=== PATIENT | female | born 1975 | race Caucasian/White ===

== ENCOUNTER 2017-06-13 08:27 | Emergency (ER) | payer OTHER ==
[~2017-06-13] VITALS: Ht 157.5 cm; Wt 70.3 kg
[~2017-06-13 08:27] MED LIST: METO25TA5 PO
[2017-06-13] MEDS ORDERED: SODIUM CHLORIDE 0.9% 1,000 ML IV ONE ×2 (08:48→09:00)
[2017-06-13] MEDS ORDERED: PROCHLORPERAZINE EDISYLATE 5 MG/ML 2ML VIAL IV ONE (09:00)
[2017-06-13 09:08] LABS: Basophils # (auto) 0.1 uL; Basophils % (auto) 0.6 % (0.0-2.0); CONDITION Y; Eosinophils # (auto) 0 uL; Eosinophils % (auto) 0.1 % (0.0-7.0); Hematocrit 43.6 % (36.0-46.0); Lymphocytes # (auto) 1.4 uL; Mean Corpuscular Hemoglobin 30.8 pg (28.0-32.0); Mean Corpuscular Hgb Conc. 34.4 g/dL (32.0-36.0); Mean Corpuscular Volume 89.5 fL (80.0-100.0); Mean Platelet Volume 7.1 fL (7.4-10.4); Monocytes # (auto) 0.6 uL; Monocytes % (auto) 6.2 % (0.0-12.0); Neutrophils # (auto) 8.3 uL; Neutrophils % (auto) 80.1 % (37.0-80.0); Platelet Count (auto) 433 10^3/uL (140-450); Red Cell Distribution Width 13.6 % (11.6-16.0); White Blood Cell 10.4 10^3/uL (4.4-10.8)
[2017-06-13 09:30] LABS: Albumin 4.1 g/dL (3.4-5.0); BUN/Creatinine Ratio 31.2; Bilirubin, Total 1.2 mg/dL (0.2-1.0); Calcium 9.7 mg/dL (8.5-10.1); Magnesium 2.6 mg/dL (1.6-2.6); Potassium 3.4 mmol/L (3.5-5.1); Total Protein 8.3 g/dL (6.4-8.2)
[2017-06-13 10:28] VITALS: BP 129/76
== END 2017-06-13 11:50 | disposition home or self-care (01) ==
LOC: ER 08:27
DX: B34.9 Viral infection, unspecified (principal); R11.14 Bilious vomiting; I10 Essential (primary) hypertension
CPT/HCPCS: 36415; 80053; 83690; 83735; 85025; 94761; 96361; 96374; 99284; J0780; J7030

== ENCOUNTER 2019-09-25 11:22 | Emergency (ER) | payer MEDICAID, OTHER ==
[~2019-09-25] VITALS: Ht 157.5 cm; Wt 77.1 kg
[2019-09-25 11:38] VITALS: BP 123/83
[2019-09-25 12:52] LABS: Urine Bacteria MANY /hpf (None Seen); Urine Blood 2+ /uL (Negative); Urine Specific Gravity 1.019 (1.001-1.035); Urine WBC 694 /hpf (0 - 5); Urine WBC Clumps PRESENT /hpf (None Seen)
[2019-09-26] MEDS ORDERED: ACET-1156 PO (21:27)
[2019-09-28] MEDS ORDERED: PROM25TA21 PO (18:05)
[2019-09-28] MEDS ORDERED: LEVO500T21 PO (18:05)
== END 2019-09-25 17:00 | disposition left against medical advice (07) ==
LOC: ER 11:22
DX: R50.9 Fever, unspecified (principal); Z53.21 Procedure and treatment not carried out due to patient leaving prior to being seen by health care provider
CPT/HCPCS: 81001

== ENCOUNTER 2020-01-17 14:13 | Emergency (ER) | payer MEDICAID ==
[~2020-01-17] VITALS: Ht 170.2 cm; Wt 74.8 kg
[~2020-01-17 14:13] MED LIST changes: +ACET-1156 PO; +LEVO500T21 PO; +PROM25TA21 PO
[2020-01-17] MEDS ORDERED: SODIUM CHLORIDE 0.9% 1,000 ML IV ONE (14:21)
[2020-01-17] MEDS ORDERED: ONDANSETRON HCL 4 MG/2 ML VIAL IV ONE (14:30)
[2020-01-17] MEDS ORDERED: LORazepam 2MG/ML-1ML VIAL IV ONE (14:30)
[2020-01-17] MEDS ORDERED: PANTOPRAZOLE 40 MG/10 ML VIAL INJ IV ONE (14:30)
[2020-01-17 14:56] LABS: Basophils # (auto) 0.1 10 ^3/uL (0-0.2); Basophils % (auto) 0.9 % (0.0-2.0); Eosinophils # (auto) 0.1 10 ^3/uL (0-0.8); Hematocrit 45.1 % (36.0-46.0); Hemoglobin 14.8 g/dL (12.2-16.2); Lymphocytes # (auto) 3.2 10 ^3/uL (0.4-5.4); Lymphocytes % (auto) 27.4 % (10.0-50.0); Mean Corpuscular Hemoglobin 28.5 pg (28.0-32.0); Mean Corpuscular Hgb Conc. 32.8 g/dL (32.0-36.0); Mean Corpuscular Volume 86.9 fL (80.0-100.0); Monocytes # (auto) 0.7 10 ^3/uL (0-1.3); Monocytes % (auto) 6.4 % (0.0-12.0); Neutrophils # (auto) 7.4 10 ^3/uL (1.6-8.6); Neutrophils % (auto) 64.3 % (37.0-80.0); Nucleated Red Blood Cells % 0.2 %; Platelet Count (auto) 391 10^3/uL (140-450); Red Blood Cells 5.18 10^6/uL (4.0-5.20); Red Cell Distribution Width 14.2 % (11.8-14.3); White Blood Cell 11.6 10^3/uL (4.4-10.8)
[2020-01-17 15:14] LABS: Albumin 3.5 g/dL (3.4-5.0); Calcium 9.1 mg/dL (8.5-10.1); Potassium 3.2 mmol/L (3.5-5.1)
[2020-01-17 15:17] LABS: BUN/Creatinine Ratio 16.5; Total Protein 8.1 g/dL (6.4-8.2)
[2020-01-17 18:16] VITALS: BP 131/76
[2020-01-17] MEDS ORDERED: POTASSIUM EFFERVESENT TAB 25 MEQ PO ONE (18:45)
== END 2020-01-17 18:44 | disposition home or self-care (01) ==
LOC: EDBD 14:13 → ER 14:13 → EDUNIT# 14:13 → ER 18:44
DX: F41.9 Anxiety disorder, unspecified (principal); R06.02 Shortness of breath; F32.9 Major depressive disorder, single episode, unspecified; I10 Essential (primary) hypertension; F17.210 Nicotine dependence, cigarettes, uncomplicated
CPT/HCPCS: 36415; 80053; 85025; 96374; 96375; 99284; C9113; J2060; J2405

== ENCOUNTER 2020-08-10 13:06 | Emergency (ER) | payer MEDICAID ==
[~2020-08-10] VITALS: Ht 157.5 cm; Wt 81.6 kg
[2020-08-10 13:18] VITALS: BP 158/96
== END 2020-08-10 15:56 | disposition left against medical advice (07) ==
LOC: ER 13:06
DX: R10.13 Epigastric pain (principal); R11.2 Nausea with vomiting, unspecified; I10 Essential (primary) hypertension; F17.210 Nicotine dependence, cigarettes, uncomplicated; F12.10 Cannabis abuse, uncomplicated; F15.10 Other stimulant abuse, uncomplicated; Z87.442 Personal history of urinary calculi; Z90.49 Acquired absence of other specified parts of digestive tract

== ENCOUNTER 2021-10-05 17:05 | Emergency (ER) | payer MEDICAID ==
[~2021-10-05] VITALS: Ht 157.5 cm; Wt 72.6 kg
[~2021-10-05 17:05] MED LIST changes: -LEVO500T21 PO; +LEVO500T31 PO
[2021-10-05 17:27] VITALS: BP 129/82
[2021-10-05] MEDS ORDERED: LIDOCAINE VISCOUS 2% 15ML UD PO ONE (17:45)
[2021-10-05] MEDS ORDERED: cefTRIAXone SOD 1,000 MG VL IM ONE (17:45)
[2021-10-05] MEDS ORDERED: LIDO2SOL23 PO (17:54)
[2021-10-05] MEDS ORDERED: AZIT250T8 PO (17:54)
== END 2021-10-05 18:03 | disposition home or self-care (01) ==
LOC: ER 17:05
DX: J03.90 Acute tonsillitis, unspecified (principal); F17.210 Nicotine dependence, cigarettes, uncomplicated; F12.10 Cannabis abuse, uncomplicated; F15.10 Other stimulant abuse, uncomplicated; K21.9 Gastro-esophageal reflux disease without esophagitis; I10 Essential (primary) hypertension; Z90.49 Acquired absence of other specified parts of digestive tract; Z87.442 Personal history of urinary calculi
CPT/HCPCS: 96372; 99283; J0696

== ENCOUNTER 2021-10-07 20:59 | Emergency (ER) | payer MEDICAID ==
[~2021-10-07] VITALS: Ht 165.1 cm; Wt 68.0 kg
[~2021-10-07 20:59] MED LIST changes: +AZIT250T8 PO; +LIDO2SOL23 PO
[2021-10-07 22:50] LABS: Basophils # (auto) 0.1 10 ^3/uL (0-0.2); Basophils % (auto) 0.4 % (0.0-2.0); Eosinophils # (auto) 0 10 ^3/uL (0-0.8); Eosinophils % (auto) 0.3 % (0.0-7.0); Hematocrit 46.1 % (36.0-46.0); Hemoglobin 16.3 g/dL (12.2-16.2); Lymphocytes # (auto) 2.4 10 ^3/uL (0.4-5.4); Lymphocytes % (auto) 17.7 % (10.0-50.0); Mean Corpuscular Hemoglobin 30.2 pg (28.0-32.0); Mean Corpuscular Hgb Conc. 35.4 g/dL (32.0-36.0); Mean Corpuscular Volume 85.4 fL (80.0-100.0); Monocytes # (auto) 1.3 10 ^3/uL (0-1.3); Monocytes % (auto) 9.7 % (0.0-12.0); Neutrophils # (auto) 9.9 10 ^3/uL (1.6-8.6); Neutrophils % (auto) 71.9 % (37.0-80.0); Nucleated Red Blood Cells % 0.1 %; Red Cell Distribution Width 14.6 % (11.8-14.3); White Blood Cell 13.7 10^3/uL (4.4-10.8)
[2021-10-07 23:08] LABS: Albumin 4.2 g/dL (3.4-5.0); Calcium 9.3 mg/dL (8.5-10.1)
[2021-10-07 23:13] LABS: BUN/Creatinine Ratio 24.3; Bilirubin, Total 1.4 mg/dL (0.2-1.0); Total Protein 8.4 g/dL (6.4-8.2)
[2021-10-07 23:34] LABS: Potassium 2.2 mmol/L (3.5-5.1)
[2021-10-08] MEDS ORDERED: POTASSIUM CHL 20MEQ/100ML 100 ML IV STA (00:21)
[2021-10-08] MEDS ORDERED: LACTATED RINGER'S 1,000 ML IV ONE (00:30)
[2021-10-08] MEDS ORDERED: POTASSIUM EFFERVESENT TAB 25 MEQ PO ONE (00:30)
[2021-10-08] MEDS ORDERED: SODIUM CHLORIDE 0.9% 1,000 ML IV ONE (02:30)
[2021-10-08] MEDS ORDERED: ONDANSETRON HCL 4 MG/2 ML VIAL IV ONE (02:30)
[2021-10-08] MEDS ORDERED: POTASSIUM CHL 20MEQ/50ML 100 ML IV ONE (02:56)
[2021-10-08] MEDS ORDERED: METOCLOPRAMIDE HCL 5MG/ml INJ 2ml VIAL IV ONE (06:15)
[2021-10-08 07:13] LABS: Albumin 3.6 g/dL (3.4-5.0); Calcium 8.9 mg/dL (8.5-10.1)
[2021-10-08 07:17] LABS: BUN/Creatinine Ratio 29.1; Bilirubin, Total 1.6 mg/dL (0.2-1.0); Total Protein 6.9 g/dL (6.4-8.2)
[2021-10-08 07:38] LABS: Potassium 2.9 mmol/L (3.5-5.1)
[2021-10-08 09:09] VITALS: BP 124/81
== END 2021-10-08 12:57 | disposition left against medical advice (07) ==
LOC: EDBD 20:59 → ER 21:04
DX: R55 Syncope and collapse (principal); E86.0 Dehydration; E87.6 Hypokalemia; F17.210 Nicotine dependence, cigarettes, uncomplicated; F12.10 Cannabis abuse, uncomplicated; F15.10 Other stimulant abuse, uncomplicated; K21.9 Gastro-esophageal reflux disease without esophagitis; I10 Essential (primary) hypertension; Z90.49 Acquired absence of other specified parts of digestive tract; Z87.442 Personal history of urinary calculi
CPT/HCPCS: 36415; 70450; 71045; 72125; 80053; 83735; 83880; 84132; 84484; 85025; 93005; 96361; 96365; 96366; 96375; 99285; J2405; J2765; J3480; J7030; J7050

== ENCOUNTER 2022-03-23 17:20 | Inpatient (IN) | payer MEDICAID ==
[~2022-03-23] VITALS: Ht 157.5 cm; Wt 68.0 kg
[2022-03-23] MEDS: SODIUM CHLORIDE 0.9% 1,000 ML IV SCH (01:23)
[2022-03-23] MEDS: POTASSIUM CHL 20MEQ/100ML 100 ML IV SCH ×2 (01:24→21:34)
[2022-03-23] MEDS ORDERED: ONDANSETRON ODT 4 MG TAB PO ONE (17:45)
[2022-03-23 18:16] LABS: Basophils # (auto) 0.1 10 ^3/uL (0-0.2); Basophils % (auto) 0.6 % (0.0-2.0); Eosinophils # (auto) 0.1 10 ^3/uL (0-0.8); Eosinophils % (auto) 0.5 % (0.0-7.0); Hematocrit 44.3 % (36.0-46.0); Hemoglobin 15.6 g/dL (12.2-16.2); Lymphocytes % (auto) 16.6 % (10.0-50.0); Mean Corpuscular Hemoglobin 30.1 pg (28.0-32.0); Mean Corpuscular Hgb Conc. 35.2 g/dL (32.0-36.0); Mean Corpuscular Volume 85.4 fL (80.0-100.0); Monocytes % (auto) 8.4 % (0.0-12.0); Neutrophils % (auto) 73.9 % (37.0-80.0); Red Blood Cells 5.19 10^6/uL (4.0-5.20); Red Cell Distribution Width 13.5 % (11.8-14.3); White Blood Cell 12.1 10^3/uL (4.4-10.8)
[2022-03-23 18:31] LABS: Partial Thromboplastin Time 23.9 sec (23.6-33.0)
[2022-03-23 18:32] LABS: Albumin 4.1 g/dL (3.4-5.0); BUN/Creatinine Ratio 21.6; Calcium 9.8 mg/dL (8.5-10.1)
[2022-03-23 18:43] LABS: Total Protein 7.9 g/dL (6.4-8.2)
[2022-03-23 18:52] LABS: Potassium 2.3 mmol/L (3.5-5.1)
[2022-03-23] MEDS ORDERED: SODIUM CHLORIDE 0.9% 1,000 ML IV ONE (19:15)
[2022-03-23] MEDS ORDERED: POTASSIUM CHL 20 Meq TABLET PO ONE (19:15)
[2022-03-23] MEDS ORDERED: PANTOPRAZOLE 40 MG/10 ML VIAL INJ IV ONE (20:15)
[2022-03-23] MEDS ORDERED: METOCLOPRAMIDE HCL 5MG/ml INJ 2ml VIAL IV ONE (21:00)
[2022-03-23] MEDS ORDERED: DOCUSATE SOD 100 MG CAP PO PRN (22:15)
[2022-03-23] MEDS ORDERED: ACETAMINOPHEN 325 MG TAB PO PRN (22:15)
[2022-03-23] MEDS ORDERED: HYDROcodone-ACET 5/325MG TAB PO PRN (22:15)
[2022-03-23] MEDS ORDERED: ONDANSETRON HCL 4 MG/2 ML VIAL IV PRN (22:15)
[2022-03-23] MEDS ORDERED: METOPROLOL TARTRATE 25 MG TAB PO ONE (22:15)
[2022-03-23] MEDS ORDERED: NITROGLYCERIN 0.4 MG SL TAB SL PRN (23:15)
[2022-03-23] MEDS ORDERED: MORPHINE SULFATE INJ 2 MG/ml SYRG IV PRN (23:15)
[2022-03-24 01:17] LABS: Urine Bacteria MOD /hpf (None Seen); Urine Blood 3+ /uL (Negative); Urine Specific Gravity 1.011 (1.001-1.035); Urine WBC 136 /hpf (0 - 5); Urine WBC Clumps PRESENT /hpf (None Seen)
[2022-03-24] MEDS ORDERED: cefTRIAXone 1GM/50ML D5W 50 ML IV ONE (01:45)
[2022-03-24] MEDS: SODIUM CHLORIDE 0.9% 1,000 ML IV SCH ×2 (03:00→10:15)
[2022-03-24 03:47] LABS: Basophils # (auto) 0 10 ^3/uL (0-0.2); Basophils % (auto) 0.4 % (0.0-2.0); Eosinophils # (auto) 0.1 10 ^3/uL (0-0.8); Hematocrit 39.5 % (36.0-46.0); Hemoglobin 13.6 g/dL (12.2-16.2); Lymphocytes # (auto) 1.7 10 ^3/uL (0.4-5.4); Lymphocytes % (auto) 17.1 % (10.0-50.0); Mean Corpuscular Hemoglobin 29.9 pg (28.0-32.0); Mean Corpuscular Hgb Conc. 34.4 g/dL (32.0-36.0); Mean Corpuscular Volume 87.1 fL (80.0-100.0); Monocytes # (auto) 0.8 10 ^3/uL (0-1.3); Neutrophils # (auto) 7.3 10 ^3/uL (1.6-8.6); Neutrophils % (auto) 73.5 % (37.0-80.0); Red Blood Cells 4.54 10^6/uL (4.0-5.20); Red Cell Distribution Width 13.5 % (11.8-14.3); White Blood Cell 9.9 10^3/uL (4.4-10.8)
[2022-03-24 04:12] LABS: Albumin 3.1 g/dL (3.4-5.0); Calcium 8.1 mg/dL (8.5-10.1)
[2022-03-24 04:15] LABS: Bilirubin, Total 1.3 mg/dL (0.2-1.0); Total Protein 6.2 g/dL (6.4-8.2)
[2022-03-24 04:43] LABS: Potassium 2.9 mmol/L (3.5-5.1)
[2022-03-24 08:43] VITALS: BP 129/63
[2022-03-24] MEDS ORDERED: cefTRIAXone 1GM/50ML D5W 50 ML IV SCH (09:00)
[2022-03-24] MEDS ORDERED: SOD CHL 0.9%/ KCL 40MEQ 1,000 ML IV SCH (09:15)
[2022-03-24] MEDS ORDERED: METOPROLOL TARTRATE 25 MG TAB PO SCH (10:00)
[2022-03-24] MEDS ORDERED: FAMOTIDINE (10MG/ML) 2ML VL IV SCH (10:00)
[2022-03-24] MEDS: MAGNESIUM SULFATE 1GM/100ML 100 ML IV SCH ×2 (10:16→11:27)
== END 2022-03-24 15:03 | disposition left against medical advice (07) | DRG 422 ==
LOC: EDBD 17:20 → ER 17:20 → TELE 23:10
PROVIDERS: ADMIT Nurse Practitioner Family; ATTEND Internal Medicine
DX: E87.6 Hypokalemia (principal); E86.0 Dehydration; E87.3 Alkalosis; K52.9 Noninfective gastroenteritis and colitis, unspecified; E87.1 Hypo-osmolality and hyponatremia; E87.8 Other disorders of electrolyte and fluid balance, not elsewhere classified; Z20.822 Contact with and (suspected) exposure to COVID-19; Z53.29 Procedure and treatment not carried out because of patient's decision for other reasons; F17.210 Nicotine dependence, cigarettes, uncomplicated; I10 Essential (primary) hypertension; K44.9 Diaphragmatic hernia without obstruction or gangrene; N39.0 Urinary tract infection, site not specified; Z80.3 Family history of malignant neoplasm of breast; Z82.49 Family history of ischemic heart disease and other diseases of the circulatory system; Z83.2 Family history of diseases of the blood and blood-forming organs and certain disorders involving the immune mechanism; Z83.3 Family history of diabetes mellitus; Z87.442 Personal history of urinary calculi; Z88.8 Allergy status to other drugs, medicaments and biological substances; Z90.49 Acquired absence of other specified parts of digestive tract
CPT/HCPCS: 36415; 71045; 74176; 80053; 81001; 83036; 83690; 83735; 84484; 84702; 85025; 85610; 85730; 87086; 93005; 96361; 96365; 96375; C9113; G0378; J0696; J3480; J3490; Q0162

== ENCOUNTER 2023-01-08 14:23 | Emergency (ER) | payer MEDICAID ==
[~2023-01-08] VITALS: Ht 157.5 cm; Wt 64.1 kg
[2023-01-08 14:32] VITALS: BP 126/91
[2023-01-08 15:02] LABS: Basophils # (auto) 0.1 10 ^3/uL (0-0.2); Basophils % (auto) 1.3 % (0.0-2.0); Eosinophils # (auto) 0.1 10 ^3/uL (0-0.8); Eosinophils % (auto) 0.7 % (0.0-7.0); Hematocrit 50.4 % (36.0-46.0); Hemoglobin 17.6 g/dL (12.2-16.2); Mean Corpuscular Hemoglobin 29.4 pg (28.0-32.0); Mean Corpuscular Hgb Conc. 34.9 g/dL (32.0-36.0); Mean Corpuscular Volume 84.3 fL (80.0-100.0); Monocytes # (auto) 0.6 10 ^3/uL (0-1.3); Monocytes % (auto) 7.7 % (0.0-12.0); Neutrophils # (auto) 5.6 10 ^3/uL (1.6-8.6); Neutrophils % (auto) 66.3 % (37.0-80.0); Nucleated Red Blood Cells % 0.1 %; Red Blood Cells 5.97 10^6/uL (4.0-5.20); Red Cell Distribution Width 14.3 % (11.8-14.3); White Blood Cell 8.4 10^3/uL (4.4-10.8)
[2023-01-08 15:10] LABS: Urine Bacteria FEW /hpf (None Seen); Urine Blood 1+ /uL (Negative); Urine Mucus FEW (None Seen); Urine Specific Gravity 1.028 (1.001-1.035); Urine WBC 21 /hpf (0 - 5)
[2023-01-08 15:45] LABS: Albumin 4.3 g/dL (3.4-5.0); BUN/Creatinine Ratio 21.7 (10.0-20.0); Potassium 3.1 mmol/L (3.5-5.1)
[2023-01-08 15:48] LABS: Total Protein 8.8 g/dL (6.4-8.2)
[2023-01-08] MEDS ORDERED: GASTROGRAFIN 120 ML SOL ONE (16:00)
[2023-01-08] MEDS ORDERED: PROCHLORPERAZINE EDISYLATE 5 MG/ML 2ML VIAL ONE (17:35)
[2023-01-08] MEDS ORDERED: PROCHLORPERAZINE EDISYLATE 5 MG/ML 2ML VIAL IV ONE (17:45)
[2023-01-08] MEDS ORDERED: KETOROLAC TROMETH 30 MG/ML 1ML VIAL IV ONE (17:45)
[2023-01-08] MEDS ORDERED: ONDANSETRON HCL 4 MG/2 ML VIAL IV ONE (17:45)
[2023-01-08] MEDS ORDERED: SODIUM CHLORIDE 0.9% 1,000 ML IV ONE ×2 (17:45)
== END 2023-01-08 18:28 | disposition left against medical advice (07) ==
LOC: ER 14:23
DX: K29.70 Gastritis, unspecified, without bleeding (principal); K21.9 Gastro-esophageal reflux disease without esophagitis; I10 Essential (primary) hypertension; F12.10 Cannabis abuse, uncomplicated; F17.210 Nicotine dependence, cigarettes, uncomplicated; F15.10 Other stimulant abuse, uncomplicated; Z87.442 Personal history of urinary calculi; Z90.49 Acquired absence of other specified parts of digestive tract; Z88.1 Allergy status to other antibiotic agents; Z88.2 Allergy status to sulfonamides
CPT/HCPCS: 36415; 71250; 74176; 80053; 81001; 83690; 85025; 96361; 96374; 96375; 99285; J0780; J1885; J2405; J7030

== ENCOUNTER 2023-05-24 18:06 | Emergency (ER) | payer MEDICAID ==
[~2023-05-24] VITALS: Ht 157.5 cm; Wt 63.3 kg
[~2023-05-24 18:06] MED LIST changes: -ACET-1156 PO; +ACET-1881 PO; +AZIT-81 PO; -AZIT250T8 PO; -LIDO2SOL23 PO; +LIDO2SOL26 PO
[2023-05-24 18:19] VITALS: BP 119/96; PULSE 140; RESP 18; O2SAT 96
[2023-05-24] MEDS ORDERED: SODIUM CHLORIDE 0.9% 1,000 ML IV ONE (19:00)
[2023-05-24] MEDS ORDERED: SODIUM CHLORIDE 0.9% 1,000 ML IVB ONE (19:15)
[2023-05-24] MEDS ORDERED: LORazepam 2MG/ML-1ML VIAL IV ONE (19:15)
[2023-05-24] MEDS ORDERED: ONDANSETRON HCL 4 MG/2 ML VIAL IV ONE (19:15)
[2023-05-24] MEDS ORDERED: PANTOPRAZOLE 40 MG/10 ML VIAL INJ IV ONE (19:15)
[2023-05-24] MEDS ORDERED: METOCLOPRAMIDE HCL 5MG/ml INJ 2ml VIAL IV ONE (19:15)
[2023-05-24 19:19] LABS: Basophils # (auto) 0.1 10 ^3/uL (0-0.2); Basophils % (auto) 1.1 % (0.0-2.0); Eosinophils # (auto) 0.1 10 ^3/uL (0-0.8); Eosinophils % (auto) 0.5 % (0.0-7.0); Hemoglobin 15.9 g/dL (12.2-16.2); Lymphocytes # (auto) 2.5 10 ^3/uL (0.4-5.4); Lymphocytes % (auto) 23.2 % (10.0-50.0); Mean Corpuscular Hemoglobin 30.1 pg (28.0-32.0); Mean Corpuscular Hgb Conc. 33.8 g/dL (32.0-36.0); Mean Corpuscular Volume 88.9 fL (80.0-100.0); Monocytes # (auto) 0.8 10 ^3/uL (0-1.3); Monocytes % (auto) 7.4 % (0.0-12.0); Neutrophils # (auto) 7.2 10 ^3/uL (1.6-8.6); Neutrophils % (auto) 67.8 % (37.0-80.0); Nucleated Red Blood Cells % 0.1 %; Red Blood Cells 5.29 10^6/uL (4.0-5.20); Red Cell Distribution Width 14.4 % (11.8-14.3); White Blood Cell 10.6 10^3/uL (4.4-10.8)
== END 2023-05-24 19:57 | disposition left against medical advice (07) ==
LOC: ER 18:06
DX: F12.188 Cannabis abuse with other cannabis-induced disorder (principal); R10.13 Epigastric pain
CPT/HCPCS: 36415; 85025; 96360; 99283; J7030

== ENCOUNTER 2023-10-05 09:16 | Emergency (ER) | payer MEDICAID ==
[~2023-10-05] VITALS: Ht 157.5 cm; Wt 68.2 kg
[2023-10-05 09:31] VITALS: BP 166/107; PULSE 124; RESP 18; O2SAT 99
== END 2023-10-05 14:58 | disposition left against medical advice (07) ==
LOC: ER 09:16
DX: R11.2 Nausea with vomiting, unspecified (principal); R10.9 Unspecified abdominal pain; Z53.21 Procedure and treatment not carried out due to patient leaving prior to being seen by health care provider

== ENCOUNTER 2023-10-16 19:00 | Emergency (ER) | payer MEDICAID ==
[~2023-10-16] VITALS: Ht 157.5 cm; Wt 68.1 kg
[2023-10-16 20:15] VITALS: BP 121/76; PULSE 119; RESP 18; O2SAT 98
[2023-10-16 22:12] LABS: Urine Bacteria MOD /hpf (None Seen); Urine Blood 3+ /uL (Negative); Urine Clarity HAZY (Clear); Urine Color Yellow (Yellow); Urine Mucus FEW (None Seen); Urine Protein, UAD 1+ (Negative); Urine WBC 59 /hpf (0 - 5)
[2023-10-16 22:15] LABS: Urine Specific Gravity 1.023 (1.001-1.035)
[2023-10-16 22:19] LABS: Amphetamine Screen, Urine Pos (NEGATIVE); Barbiturate Scree,Urine Neg (NEGATIVE); Benzodiazephine Screen, Urine Neg (NEGATIVE); Cannabinoid Screen, Urine Pos (NEGATIVE); Cocaine Screen, Urine Neg (NEGATIVE); Opiate Scree,Urine Neg (NEGATIVE); Phencyclidine Screen, Urine Neg (NEGATIVE)
== END 2023-10-16 22:36 | disposition left against medical advice (07) ==
LOC: ER 19:00
DX: R11.2 Nausea with vomiting, unspecified (principal); Z53.21 Procedure and treatment not carried out due to patient leaving prior to being seen by health care provider
CPT/HCPCS: 80307; 81001

== ENCOUNTER 2024-08-28 13:25 | Emergency (ER) | payer MEDICAID ==
[~2024-08-28] VITALS: Ht 157.5 cm; Wt 63.7 kg
[~2024-08-28 13:25] MED LIST changes: +AZIT-185 PO; -AZIT-81 PO
[2024-08-28 14:05] LABS: Basophils # (auto) 0.1 10 ^3/uL (0-0.2); Eosinophils # (auto) 0.2 10 ^3/uL (0-0.8); Eosinophils % (auto) 1.4 % (0.0-7.0); Hemoglobin 16.1 g/dL (12.2-16.2); Mean Corpuscular Hemoglobin 31.3 pg (28.0-32.0); Red Blood Cells 5.15 10^6/uL (4.0-5.20); Red Cell Distribution Width 13.8 % (11.8-14.3); White Blood Cell 10.9 10^3/uL (4.4-10.8)
[2024-08-28 14:07] LABS: Basophils % (auto) 0.9 % (0.0-2.0); Hematocrit 45.8 % (36.0-46.0); Lymphocytes # (auto) 2.3 10 ^3/uL (0.4-5.4); Lymphocytes % (auto) 20.8 % (10.0-50.0); Mean Corpuscular Hgb Conc. 35.1 g/dL (32.0-36.0); Monocytes # (auto) 0.7 10 ^3/uL (0-1.3); Monocytes % (auto) 6.4 % (0.0-12.0); Neutrophils # (auto) 7.7 10 ^3/uL (1.6-8.6); Neutrophils % (auto) 70.5 % (37.0-80.0); Platelet Count (auto) 477 10^3/uL (140-450)
[2024-08-28 14:21] LABS: Alanine Aminotransferase 12 U/L (7-40); Albumin 4.6 g/dL (3.2-4.8); Alkaline Phosphatase 75 U/L (46-116); Anion Gap 6 (5-15); Aspartate Aminotransferase 8 U/L (13-40); BUN/Creatinine Ratio 13.3 (10.0-20.0); Bilirubin, Total 1.6 mg/dL (0.2-1.0); Blood Urea Nitrogen 8 mg/dL (9-23); Carbon Dioxide 32 mmol/L (20-31); Chloride 93 mmol/L (98-107); Glucose 121 mg/dL (74-106); Sodium 131 mmol/L (136-145); Total Protein 7.5 g/dL (5.7-8.2)
--- NOTE | 2024-08-28 14:32 | ED.PDOC ---
GI ASSESSMENT HPI Comments A 49 YEAR OLD FEMALE PRESENTS TO THE ED WITH COMPLAINT OF EPIGASTRIC PAIN AND NAUSEA DUE TO HIATAL HERNIA. PATIENT STATES SHE HAS A HISTORY OF A HELD HERNIA AND NOTES THAT SHE TAKES PROTONIX TO MANAGE HER EPIGASTRIC PAIN AND NAUSEA, BUT STATES THAT SHE RECENTLY RAN OUT OF THIS MEDICATION 5 DAYS AGO AND BEGAN TO EXPERIENCE EPIGASTRIC PAIN WITH NAUSEA ONCE AGAIN. PATIENT IS REQUESTING IV TREATMENT AND A MEDICATION REFILL FOR HER PROTONIX. PATIENT DENIES FEVER, CHILLS, SHORTNESS OF BREATH, CHEST PAIN, VOMITING, HEADACHE, OR OTHER COMPLAINTS. NO OTHER SYMPTOMS OR MODIFYING FACTORS AT THIS TIME. PATIENT IS ALERT, ORIENTED X 4, AND HAS STEADY GAIT. Chief Complaint: Abdominal Pain Time Seen by MD: 13:38 Primary Care Provider: Josesito Reviewed Notes: Nurses Notes, Medications, Allergies Allergies: Coded Allergies: Quetiapine (Verified Allergy, Unknown, 08/10/20) Home Meds Active Scripts Sulfamethoxazole W/Trimethopri (Bactrim Ds Tablet) 1 Tab Tb, 1 TAB PO BID for 7 Days, #14 TAB Prov:MAXIMINO HARRIS 08/28/24 Ondansetron Odt 4MG Tab (ZOFRAN PO) 4 Mg Tb, 4 MG PO BID, #14 TAB ODT TAB-DISSOLVE IN MOUTH, THEN SWALLOW Prov:MAXIMINO HARRIS 08/28/24 Pantoprazole Sodium Sesquihydr (Protonix) 40 Mg Tab, 40 MG PO DAILY, #30 TAB Prov:MAXIMINO HARRIS 08/28/24 Lidocaine HCl (Mouth-Throat) (Lidocaine HCl Viscous) 2 % Kiki, 2 % PO TID, #100 ML Prov:MAXIMINO HARRIS 10/05/21 Azithromycin (ZITHROMAX TABLET) 250 Mg Tb, 250 MG PO DAILY for 6 Days, #6 TAB 0 Refills Prov:MAXIMINO HARRIS 10/05/21 Levofloxacin (Levaquin) 500 Mg Tab, 500 MG PO DAILY, #11 TAB Prov:ALMA MARAVILLA MD 09/28/19 Promethazine HCl (Promethazine Hydrochlorid) 25 Mg Tab, 25 MG PO Q6HPRN PRN, #12 TAB Prov:ALMA MARAVILLA MD 09/28/19 Reported Medications Acetaminophen (Acetaminophen) 325 Mg Tab, 1000 MG PO Q8HP PRN for MILD PAIN (1-3 PAIN SCALE) for 30 Days, MG 0 Refills 09/26/19 Metoprolol Tartrate (Metoprolol Tartrate) 25 Mg Tab, 25 MG PO, TAB 06/10/16 Information Source: Patient Mode of Arrival: Ambulatory Timing: Days Duration: Since onset, Days Prehospital treatment: None Quality: Aching, Cramping Vomitus: None Stool: Normal Severity: Moderate Recent: None Recent Hx of: Other (HIATAL HERNIA) Pain Location: Epigastric Modifying Factors: Nothing Associated sign and symptoms: Nausea, Vomiting, Abdominal Pain, None Past Medical History PAST MEDICAL HISTORY: Anxiety, Depression, GERD, HTN, Kidney Stones, UTI'S Past Medical History (Other): HIATAL HERNIA Surgical History: Cholecystectomy, , 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 History Family History Family History: Reviewed,noncontributory to illness, No family hx of Cancer, No family hx of DM Social History Smoker: Cigarettes, Greater Than 1 Pack/Day Alcohol: Denies ETOH Use Drugs: Marijuana, Methamphetamine Lives In: Home Constitutional: denies: chills, diaphoresis, fatigue, fever, malaise, sweats, weakness, others EENTM: denies: blurred vision, double vision, ear bleeding, ear discharge, ear drainage, ear pain, ear ringing, eye pain, eye redness, hearing loss, mouth pain, mouth swelling, nasal discharge, nose bleeding, nose congestion, nose pain, photophobia, tearing, throat pain, throat swelling, voice changes, others Respiratory: denies: cough, hemoptysis, orthopnea, SOB at rest, shortness of breath, SOB with excertion, stridor, wheezing, others Cardiovascular: denies: chest pain, dizzy spells, diaphoresis, Dyspnea on exertion, edema, irregular heart beat, left arm pain, lightheadedness, palpitations, PND, syncope, others Gastrointestinal: reports: abdominal pain (EPIGASTRIC PAIN), nausea; denies: abdomen distended, blood streaked bowels, constipated, diarrhea, dysphagia, difficulty swallowing, hematemesis, melena, poor appetite, poor fluid intake, rectal bleeding, rectal pain, vomiting, others Genitourinary: reports: dysuria, frequency, urgency; denies: abnormal vagina bleeding, burning, dyspareunia, flank pain, hematuria, incontinence, pain, , vagina discharge, others Neurological: denies: dizziness, fainting, headache, left sided numbness, left sided weakness, numbness, paresthesia, pre-existing deficit, right sided numbness, right sided weakness, seizure, speech problems, tingling, tremors, weakness, others Musculoskeletal: denies: back pain, gout, joint pain, joint swelling, muscle pain, muscle stiffness, neck pain, others Integumetry: denies: bruises, change in color, change in hair/nails, dryness, laceration, lesions, lumps, rash, wounds, others Allergic/Immunocompromised: denies: Difficulty Healing, Frequent Infections, Hives, Itching, others Hematologic/Lymphatic: denies: anemia, blood clots, easy bleeding, easy bruising, swollen glands, others Endocrine: denies: excessive hunger, excessive sweating, excessive thirst, excessive urination, flushing, intolerance to cold, intolerance to heat, unexplained weight gain, unexplained weight loss, others Psychiatric: denies: anxiety, bipolar disorder, depression, hopeless, panic disorder, schizophrenia, sleepless, suicidal, others All Other Systems: Reviewed and Negative Physical Exam General Appearance: No Apparent Distress, Normal HEENT: Normal ENT Inspection, PERRL/EOMI, Pharynx Normal, TMs Normal Neck: Full Range of Motion, Non-Tender, Normal, Normal Inspection Respiratory: Chest Non-Tender, Lungs Clear, No Accessory Muscle Use, No Respiratory Distress, Normal Breath Sounds Cardiovascular: No Edema, No JVD, No Murmur, No Gallop, Normal Peripheral Pulses, Regular Rate/Rhythm Breast Exam: Deferred Gastrointestinal: Epigastric, No Organomegaly, No Pulsatile Mass, Normal Bowel Sounds, Soft, Tenderness (EPIGASTRIC, NO GUARDING AND REBOUND TENDERNESS. 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 Was a procedure done?: No GI differential Dx Differential Diagnosis: Gastritis/PUD, Gastroenteritis, Hernia, UTI, Dehydration X-Ray, Labs, Meds, VS Vital Signs Date Time Temp Pulse Resp B/P (MAP) Pulse Ox O2 Delivery O2 Flow Rate FiO2 08/28/24 14:56 98.2 116 16 130/89 (103) 98.2 08/28/24 14:56 116 16 96 Room Air 08/28/24 14:00 98.2 116 16 130/89 (103) 96 Lab Test 08/28/24 14:24 08/28/24 13:55 Range/Units Urine Color Light-orange Yellow Urine Clarity Turbid H Clear Urine pH 6.0 5.0-9.0 Urine Specific [place] 1.016 1.001-1.035 Urine Protein Trace H Negative Urine Ketones Negative Negative Urine Blood 3+ H Negative /uL Urine Nitrite Negative Negative Urine Bilirubin Negative Negative Urine Urobilinogen 2 H Negative mg/dL Urine Leukocyte Esterase 3+ Negative /uL Urine RBC 418 0 - 4 /hpf Urine WBC 84 0 - 5 /hpf Urine Squamous Epithelial Cells Few <5 /hpf Urine Bacteria Mod H None Seen /hpf Urine Mucus Few None Seen Urine Glucose Normal Normal mg/dL Urine Test Negative Negative White Blood Count 10.9 H 4.4-10.8 10^3/uL Red Blood Count 5.15 4.0-5.20 10^6/uL Hemoglobin 16.1 12.2-16.2 g/dL Hematocrit 45.8 36.0-46.0 % Mean Corpuscular Volume 89.0 80.0-100.0 fL Mean Corpuscular Hemoglobin 31.3 28.0-32.0 pg Mean Corpuscular Hemoglobin Concent 35.1 32.0-36.0 g/dL Red Cell Distribution Width 13.8 11.8-14.3 % Platelet Count 477 H 140-450 10^3/uL Mean Platelet Volume 6.6 L 6.9-10.8 fL Neutrophils (%) (Auto) 70.5 37.0-80.0 % Lymphocytes (%) (Auto) 20.8 10.0-50.0 % Monocytes (%) (Auto) 6.4 0.0-12.0 % Eosinophils (%) (Auto) 1.4 0.0-7.0 % Basophils (%) (Auto) 0.9 0.0-2.0 % Neutrophils # (Auto) 7.7 1.6-8.6 10 ^3/uL Lymphocytes # (Auto) 2.3 0.4-5.4 10 ^3/uL Monocytes # (Auto) 0.7 0-1.3 10 ^3/uL Eosinophils # (Auto) 0.2 0-0.8 10 ^3/uL Basophils # (Auto) 0.1 0-0.2 10 ^3/uL Nucleated Red Blood Cells 0.0 % Sodium Level 131 L 136-145 mmol/L Potassium Level 3.0 L 3.5-5.1 mmol/L Chloride Level 93 L 98-107 mmol/L Carbon Dioxide Level 32 H 20-31 mmol/L Anion Gap 6 5-15 Blood Urea Nitrogen 8 L 9-23 mg/dL Creatinine 0.60 0.550-1.02 mg/dL Glomerular Filtration Rate Calc 110 >90 mL/min BUN/Creatinine Ratio 13.3 10.0-20.0 Serum Glucose 121 H 74-106 mg/dL Calcium Level 10.0 8.7-10.4 mg/dL Total Bilirubin 1.6 H 0.2-1.0 mg/dL Aspartate Amino Transferase (AST) 8 L 13-40 U/L Alanine Aminotransferase (ALT) 12 7-40 U/L Alkaline Phosphatase 75 46-116 U/L Total Protein 7.5 5.7-8.2 g/dL Albumin 4.6 3.2-4.8 g/dL Current Medications Medications (Trade) Dose Ordered Sig/Seble Route Start Time Stop Time Status Last Admin Sodium Chloride 1,000 ml @ 1,000 mls/hr Q1H ONCE IV 08/28/24 14:30 08/28/24 15:29 DC 08/28/24 14:56 Ondansetron HCl (Zofran) 4 mg ONCE ONCE IV 08/28/24 14:30 08/28/24 14:31 DC 08/28/24 14:56 Pantoprazole Sodium (Protonix) 40 mg ONCE ONCE IV 08/28/24 14:30 08/28/24 14:31 DC 08/28/24 14:56 Ceftriaxone Sodium 50 ml @ 100 mls/hr ONCE ONCE IV 08/28/24 15:15 08/28/24 15:44 DC 08/28/24 15:20 Potassium Bicarbonate (Klor-Con/Ef) 50 meq ONCE ONCE PO 08/28/24 15:15 08/28/24 15:16 DC 08/28/24 15:19 X-Ray, Labs, Meds, VS Comment LABS ORDERED: CBC, CMP, URINE , UA REVIEWED AND INTERPRETED RESULTS: K 3.0, NA 131, LEUKO 3+, BLOOD 3+ TREATMENT: NS 1 L IV, ZOFRAN 4 MG IV, PROTONIX 40 MG IV, POTASSIUM 50 [address] ROCEPHIN 1 G IV PATIENT REPORTED FEELING MUCH BETTER AFTER RECEIVING IV TREATMENT. PATIENT WAS OFFERED IMAGING OF HER ABDOMEN, BUT THE PATIENT DECLINED ANY IMAGING AT THIS TIME SHE STATES THAT HER PAIN IS THE SAME PREVIOUS EPISODES DUE TO HER HIATAL HERNIA, AND WOULD ONLY LIKE IV TREATMENT HERE IN THE ED. Time of 1ST Reevaluation: 16:36 Reevaluation 1ST: Improved Patient Education/Counseling: Diagnosis, Treatment, Need For Follow Up Family Education/Counseling: Diagnosis, Treatment, Need For Follow Up Medical Screening: No EMC Exist At This Time Departure 1 Departure Time of Disposition: 16:37 Impression: Primary Impression: Epigastric pain Additional Impressions: History of hiatal hernia Medication administered Acute UTI (urinary tract infection) Disposition: HOME / SELF CARE / HOMELESS Condition: Stable Additional Instructions: FOLLOW-UP WITH PCP IN 1 TO 2 DAYS. TAKE MEDICATIONS PRESCRIBED. RETURN TO ED FOR ANY NEW OR WORSENING SYMPTOMS. e-Prescriptions Sulfamethoxazole W/Trimethopri (Bactrim Ds Tablet) 1 Tab Tb 1 TAB PO BID for 7 Days, #14 TAB Prov: MAXIMINO HARRIS 08/28/24 Ondansetron Odt 4MG Tab (ZOFRAN PO) 4 Mg Tb 4 MG PO BID, #14 TAB ODT TAB-DISSOLVE IN MOUTH, THEN SWALLOW Prov: MAXIMINO HARRIS 08/28/24 Pantoprazole Sodium Sesquihydr (Protonix) 40 Mg Tab 40 MG PO DAILY, #30 TAB Prov: MAXIMINO HARRIS 08/28/24 Discharged With: Self, Relative Critical Care Note Critical Care Time?: No Stability Stability form required: No I personally scribed for MAXIMINO HARRIS ([email or web address]) on 08/28/24 at 14:32. Electronically submitted by Charlie Bruce ([email or web address]). I personally scribed for MAXIMINO HARRIS ([email or web address]) on 08/28/24 at 16:38. Electronically submitted by Charlie Bruce ([email or web address]). MAXIMINO HARRIS Aug 28, 2024 14:32
[2024-08-28 14:43] LABS: Urine Bacteria MOD /hpf (None Seen); Urine Blood 3+ /uL (Negative); Urine Clarity Turbid (Clear); Urine Color Light-Orange (Yellow); Urine Mucus FEW (None Seen); Urine Protein, UAD TRACE (Negative); Urine Specific Gravity 1.016 (1.001-1.035); Urine Urobilinogen 2 mg/dL (Negative); Urine WBC 84 /hpf (0 - 5)
[2024-08-28 14:56] VITALS: BP 130/89; PULSE 116; RESP 16; TEMP 98.2; O2SAT 96
[2024-08-28] MEDS: ONDANSETRON HCL 4 MG/2 ML VIAL IV ONE (14:56)
[2024-08-28] MEDS: SODIUM CHLORIDE 0.9% 1,000 ML IV ONE (14:56)
[2024-08-28] MEDS: PANTOPRAZOLE 40 MG/10 ML VIAL INJ IV ONE (14:56)
[2024-08-28] MEDS: POTASSIUM EFFERVESENT TAB 25 MEQ PO ONE (15:19)
[2024-08-28] MEDS: cefTRIAXone 1GM/50ML D5W 50 ML IV ONE (15:20)
[2024-08-28] MEDS ORDERED: PANT40TA2 PO (16:17)
[2024-08-28] MEDS ORDERED: ZOFR4T PO (16:17)
[2024-08-28] MEDS ORDERED: BACDST PO (16:17)
== END 2024-08-28 16:22 | disposition home or self-care (01) ==
LOC: ER 13:25
DX: N39.0 Urinary tract infection, site not specified (principal); R10.13 Epigastric pain; K21.9 Gastro-esophageal reflux disease without esophagitis; F17.210 Nicotine dependence, cigarettes, uncomplicated; F12.90 Cannabis use, unspecified, uncomplicated; F15.90 Other stimulant use, unspecified, uncomplicated; Z88.8 Allergy status to other drugs, medicaments and biological substances; Z79.899 Other long term (current) drug therapy; Z87.442 Personal history of urinary calculi; Z90.49 Acquired absence of other specified parts of digestive tract; Z98.890 Other specified postprocedural states
CPT/HCPCS: 36415; 80053; 81001; 81025; 85025; 96365; 96375; 99284; J0696; J2405; J2470; J7030